=== PATIENT | male | born 1945 | race Native Hawaiian/Other Pacific Islander ===

== ENCOUNTER 2017-04-29 12:20 | Day surgery (SDC) | payer OTHER ==
[2017-04-29] MEDS ORDERED: ALTEPLASE 2 MG VIAL IVP PRN (13:29)
[2017-04-29] MEDS ORDERED: GLUCAGON HCL 1 MG VIAL IVP PRN (13:29)
[2017-04-29] MEDS ORDERED: MIDAZOLAM 2 MG/2 ML VIAL IVP PRN (13:29)
[2017-04-29] MEDS ORDERED: MEPERIDINE 25 MG/ML SYR IVP PRN (13:29)
[2017-04-29] MEDS ORDERED: NALOXONE HCL 0.4 MG/ML INJ IVP PRN ×2 (13:29→15:47)
[2017-04-29] MEDS ORDERED: fentaNYL 100 MCG/2 ML INJ IVP PRN ×2 (13:29→15:47)
[2017-04-29] MEDS ORDERED: FLUMAZENIL 0.5 MG/5 ML MDV IVP PRN (13:29)
[2017-04-29] MEDS ORDERED: HEPARIN 10,000 UNIT/10 ML MDV (1,000 UNIT/ML) IVP PRN (13:29)
[2017-04-29] MEDS ORDERED: PROTAMINE SULFATE 50 MG/5 ML VIAL IVP PRN (13:29)
[2017-04-29] MEDS ORDERED: NS 1,000 ML IV SCH (13:30)
[2017-04-29 13:46] LABS: PLATELET COUNT 217 10^3/uL (150-400)
[2017-04-29 13:55] LABS: INR 0.99 (0.83-1.16); PROTIME(PATIENT) 13.3 SEC (12.0-15.0)
--- NOTE | 2017-04-29 14:01 | PDANEPAE ---
ANE History of Present Illness 71 yo for spinal arterogram ANE Past Medical History - Cardiovascular History Hx Hypertension: No Hx Arrhythmias: Yes Hx Chest Pain: No Hx Coronary Artery / Peripheral Vascular Disease: No Hx CHF / Valvular Disease: No Hx Palpitations: No Cardiovascular History Comment: "abnormal heart rate" - Pulmonary History Hx COPD: No Hx Asthma/Reactive Airway Disease: No Hx Recent Upper Respiratory Infection: No Hx Oxygen in Use at Home: No Hx Sleep Apnea: No - Neurologic History Hx Cerebrovascular Accident: No Hx Seizures: No - Endocrine History Hx Diabetes: No - Renal History Hx Renal Disorders: No - Liver History Hx Hepatic Disorders: No - Neurological & Psychiatric Hx Hx Neurological and Psychiatric Disorders: No - Cancer History Hx Cancer: No - Congenital Disorder History Hx Congenital Disorders: No - GI History Hx Gastrointestinal Disorders: No - Other Health History Other Health History: missing teeth - Chronic Pain History Chronic Pain: No - Surgical History Prior Surgeries: right knee replacement 05/08/2016,Back surgery for leaking blood vessels, teeth implant for tomorrow 04/30/17 ANE Review of Systems Review of Systems: - Exercise capacity METS (RN): 3 METS ANE Patient History - Allergies Allergies/Adverse Reactions: No Known Allergies Allergy (Unverified 04/29/17 13:28) - Home Medications Home medications: home medication list seen and reviewed Home Medications: AMOXICILLIN 04/29/17 [Last Taken Unknown] - Anes Hx Anes Hx: no prior problems - Smoking Hx Smoking Status: Former smoker - Family Anes Hx Family Hx Anesthesia Complications: none ANE Labs/Vital Signs - Labs Result Diagrams: 04/29/17 13:35 04/29/17 13:35 - Vital Signs Height: 5 ft 3 in Weight: 79.379 kg ANE Physical Exam - Airway Neck exam: FROM Mallampati Score: Class 2 Mouth exam: normal dental/mouth exam - Pulmonary Pulmonary: no respiratory distress - Cardiovascular Cardiovascular: regular rate and rhythym - ASA Status ASA Status: II ANE Anesthesia Plan Anesthesia Plan: general endotracheal anesthesia
[2017-04-29 14:03] VITALS: PULSE 86
[2017-04-29] MEDS ORDERED: PROPOFOL/EMULSION 500 MG/50 ML BOTTLE IV ONE (14:10)
[2017-04-29] MEDS ORDERED: fentaNYL 100 MCG/2 ML INJ ONE (14:10)
[2017-04-29] MEDS ORDERED: REMIFENTANIL HCL 1 MG VIAL ONE (14:11)
[2017-04-29] MEDS ORDERED: ROCURONIUM 50 MG/5 ML VIAL ONE (14:16)
[2017-04-29] MEDS ORDERED: DEXAMETHASONE 4 MG/ML VIAL ONE (14:16)
[2017-04-29] MEDS ORDERED: METOCLOPRAMIDE 10 MG/2 ML VIAL ONE (14:16)
[2017-04-29] MEDS ORDERED: HYDROCODONE/APAP 5/325 TAB PO PRN (15:47)
[2017-04-29] MEDS ORDERED: ONDANSETRON 4 MG/2 ML VIAL IVP PRN ×2 (15:47→16:13)
[2017-04-29] MEDS ORDERED: OXYCODONE/APAP 5/325 TAB PO PRN (16:13)
--- NOTE | 2017-04-29 16:15 | POSTOPPROG ---
Post Op Note Date of Operation: 04/29/17 Surgeon: Kevin Vanegas [employer] Lieutenant: none Anesthesia: GET(General Endotracheal) Pre-op Diagnosis: spinal fistula Post-op Diagnosis: same Indication: post-op spinal fistula Procedure: spinal angiogram bilateral T5-L4 Findings: small residual fistula at L1 on the left Inf/Abcess present in the surg proc area at time of surgery?: No EBL: Minimal
[2017-04-29] MEDS ORDERED: IOPAMIDOL (ISOVUE-300) 100 ML BTL ONE (16:18)
--- NOTE | 2017-04-29 16:35 | POSTANESTH ---
Post Anesthetic Evaluation Cardiovascular Status: Normal, Stable Respiratory Status: Normal, Stable Level of Consciousness/Mental Status: Can Participate in Eval Pain Control: Adequate, Prn Tx Ordered Nausea/Vomiting Control: Adequate, Prn Tx Ordered Complications Possibly Related to Anesthesia: None Noted
[2017-04-29 19:18] VITALS: BP 121/71
[2017-04-29 19:30] VITALS: RESP 14; TEMP 97.9; O2SAT 95
== END 2017-04-29 19:25 | disposition home or self-care (01) ==
LOC: FSGY 12:20
PROVIDERS: ATTEND Neurological Surgery
PROC: B41C1ZZ Fluoroscopy of Pelvic Arteries using Low Osmolar Contrast (ICD-10-PCS; principal; 2017-04-29 14:00)
PROC: B31M1ZZ Fluoroscopy of Spinal Arteries using Low Osmolar Contrast (ICD-10-PCS; principal; 2017-04-29 14:00)
DX: I77.0 Arteriovenous fistula, acquired (principal)
CPT/HCPCS: 36215; 36245; 75705; C1769; C1894; J1100; J1644; J2704; J2765; J3010; Q9967

== ENCOUNTER 2017-06-03 10:51 | Observation (INO) | payer OTHER ==
[2017-06-03] MEDS ORDERED: IOPAMIDOL (ISOVUE-300) 100 ML BTL ONE (13:36)
--- NOTE | 2017-06-03 15:00 | PDANEPAE ---
ANE Past Medical History - Cardiovascular History Hx Hypertension: No Hx Arrhythmias: Yes Hx Chest Pain: No Hx Coronary Artery / Peripheral Vascular Disease: No Hx CHF / Valvular Disease: No Hx Palpitations: No Cardiovascular History Comment: "abnormal heart rate" - Pulmonary History Hx COPD: No Hx Asthma/Reactive Airway Disease: No Hx Recent Upper Respiratory Infection: No Hx Oxygen in Use at Home: No Hx Sleep Apnea: No Sleep Apnea Screening Result - Last Documented: Negative - Neurologic History Hx Cerebrovascular Accident: No Hx Seizures: No Hx Dementia: No - Endocrine History Hx Diabetes: Yes Endocrine History Comment: borderline diabetic - Renal History Hx Renal Disorders: No - Liver History Hx Hepatic Disorders: No - Neurological & Psychiatric Hx Hx Neurological and Psychiatric Disorders: No - Cancer History Hx Cancer: No - Congenital Disorder History Hx Congenital Disorders: No - GI History Hx Gastrointestinal Disorders: No - Other Health History Other Health History: missing teeth - Chronic Pain History Chronic Pain: No - Surgical History Prior Surgeries: right knee replacement 05/08/2016,Back surgery for leaking blood vessels, teeth implant for tomorrow 04/30/17 ANE Review of Systems Review of Systems: - Exercise capacity METS (RN): 3 METS ANE Patient History - Allergies Allergies/Adverse Reactions: No Known Allergies Allergy (Verified 05/27/17 17:10) - Home Medications Home Medications: Multivitamin DAILY 06/03/17 [Last Taken 06/02/17] - Anes Hx Anes Hx: no prior problems - Smoking Hx Smoking Status: Never smoked - Family Anes Hx Family Hx Anesthesia Complications: none ANE Labs/Vital Signs - Vital Signs Blood Pressure: 138/86 Heart Rate: 66 Respiratory Rate: 16 O2 Sat (%): 91 Height: 162.56 cm Weight: 81.193 kg ANE Physical Exam - Airway Neck exam: FROM Mallampati Score: Class 2 Mouth exam: normal dental/mouth exam - Pulmonary Pulmonary: no respiratory distress, no rales or rhonchi, clear to auscultation - Cardiovascular Cardiovascular: regular rate and rhythym, no murmur, rub, or gallop - ASA Status ASA Status: II ANE Anesthesia Plan Anesthesia Plan: general endotracheal anesthesia
[2017-06-03] MEDS ORDERED: fentaNYL 100 MCG/2 ML INJ ONE (15:20)
[2017-06-03] MEDS ORDERED: PROPOFOL 200 MG/20 ML VIAL ONE (15:20)
[2017-06-03] MEDS ORDERED: LIDOCAINE 2% JELLY 5 ML TUBE ONE (15:20)
[2017-06-03] MEDS ORDERED: LIDOCAINE 2% 5 ML SDV ONE (15:20)
[2017-06-03] MEDS ORDERED: ONDANSETRON 4 MG/2 ML VIAL ONE (15:21)
[2017-06-03] MEDS ORDERED: PHENYLEPHRINE HCL 100 MCG/ML SYR ONE (15:48)
[2017-06-03] MEDS ORDERED: NALOXONE HCL 0.4 MG/ML INJ IVP PRN (16:38)
[2017-06-03] MEDS ORDERED: HYDROCODONE/APAP 5/325 TAB PO PRN (16:38)
[2017-06-03] MEDS ORDERED: ONDANSETRON 4 MG/2 ML VIAL IVP PRN (16:38)
[2017-06-03] MEDS ORDERED: PROMETHAZINE HCL 25 MG/ML INJ IVP PRN (16:38)
[2017-06-03] MEDS ORDERED: LR 500 ML IV PRN (16:38)
[2017-06-03] MEDS ORDERED: fentaNYL 100 MCG/2 ML INJ IVP PRN (16:38)
[2017-06-03] MEDS ORDERED: ACETAMINOPHEN 500 MG TAB PO PRN (16:38)
--- NOTE | 2017-06-03 17:11 | POSTOPPROG ---
Post Op Note Date of Operation: 06/03/17 Surgeon: Kevin Vanegas Tapper Shank: none Anesthesiologist: Ree Anesthesia: GET(General Endotracheal) Pre-op Diagnosis: spinal fistula Post-op Diagnosis: same Indication: residual spinal fistula (L1) after surgery Procedure: embolization of spinal fistula Findings: successful amy embolization Inf/Abcess present in the surg proc area at time of surgery?: No EBL: Minimal Complications: none
--- NOTE | 2017-06-03 17:24 | POSTANESTH ---
Post Anesthetic Evaluation Cardiovascular Status: Normal, Stable, Similar to Pre-Op Cond Respiratory Status: Normal, Stable, Similar to Pre-op Cond. Level of Consciousness/Mental Status: Can Participate in Eval, Mildly Sleepy, Arousable Pain Control: Adequate, Prn Tx Ordered Nausea/Vomiting Control: Adequate, Prn Tx Ordered Complications Possibly Related to Anesthesia: None Noted
[2017-06-04] MEDS ORDERED: ALBUTEROL 60 PUFFS/8 GM MDI IH PRN (07:00)
[2017-06-04 07:49] VITALS: BP 154/57; PULSE 84; RESP 24; TEMP 97.9; O2SAT 90
--- NOTE | 2017-06-04 08:20 | NEUSURGPN ---
Assessment/Plan: 72 yo M POD #1 s/p embolization of L1 spinal fistula Plan: Neuro intact Advance activity as tolerated Pain management Diet as tolerated Plan for DC to home today D/w Dr Vanegas Subjective: Pt resting in bed, denies any significant pain. Objective: AAOx3 NAD VSS MAEx4 Motor 5/5 BLE +LT Incision cdi dressing intact Urinary Catheter in Place: No - Physician Discussed Patient with Dr.: Vanegas Neurosurgery Physical Exam - Vitals, I&O, Labs I and O 06/03/17 06/04/17 06/05/17 05:59 05:59 05:59 Intake Total 1400 Output Total 1325 Balance 75 Weight 85 kg 83.3 kg Intake: Oral (ml) 900 IV Intake (ml) 500 Output: Urine (ml) 1325 Urinal 1325 Vital Signs Temp Pulse Resp BP Pulse Ox 36.6 C 84 24 H 154/57 H 90 L 06/04/17 07:47 06/04/17 07:47 06/04/17 07:47 06/04/17 07:47 06/04/17 07:47 ICD10 Worksheet Patient Problems: Problems Problem Status Onset Arteriovenous fistula of spinal cord vessels Acute - ICD10 Problem Qualifiers (1) Arteriovenous fistula of spinal cord vessels
[2017-06-04] MEDS ORDERED: MULTIVITAMINS 1 EACH TAB PO SCH (09:00)
[2017-06-04] MEDS ORDERED: FLU VACC QS 2017-18 (3YR+)/PF 0.5 ML SYR (FLUARIX QUAD) IM ONE (12:14)
[2017-06-04] MEDS ORDERED: PNEUMOC 13-VAL CONJ-DIP CRM/PF 0.5 ML SYR IM ONE (12:14)
== END 2017-06-04 12:57 | disposition home or self-care (01) ==
LOC: FSGY 10:51 → F2N 17:57 → INTOOBSV 17:57
PROVIDERS: ADMIT Neurological Surgery; ATTEND Neurological Surgery
DX: I77.0 Arteriovenous fistula, acquired (principal); Z23 Encounter for immunization; R73.03 Prediabetes; Z96.651 Presence of right artificial knee joint
CPT/HCPCS: 36217; 61624; 75705; 90471; C1769; C1887; C1894; G0378; G0008; G0009; J1644; J2370; J2405; J2704; J3010; Q9967